=== PATIENT | male | born 2000 | race Caucasian/White ===

== ENCOUNTER 2019-06-25 13:47 | Emergency (ER) | payer OTHER ==
[~2019-06-25] VITALS: Ht 170.2 cm; Wt 72.8 kg
[~2019-06-25 13:47] MED LIST: ACET325T45 PO; ACET500C5 PO; D-ME118S6 PO; IBUP-1541 PO; ONDA4TAB14 PO
[2019-06-25 14:01] VITALS: Ht 170.2 cm; Wt 72.8 kg
[2019-06-25] MEDS ORDERED: ONDANSETRON (ODT) 4 MG TAB ODT STA (15:10)
--- NOTE | 2019-06-25 15:21 | ERD ---
ER Documentation Chief Complaint Chief Complaint c/o headache dizziness s/p headbut with another during soccer game HPI 18-year-old male presented to ED for a headache x1 day. Patient states he was in a soccer game last night and collided heads with another player. Patient did not lose consciousness patient member the entire event. Patient not currently taking any blood thinners he is not any other medications patient states the pain is about a 7 out of 10. Patient states the pains on the right side and extends from the temporal lobe to the occipital lobe. Patient denies any blurry vision and he is alert and oriented x4. Patient states he has no allergies to medications. ROS All systems reviewed and are negative except as per history of present illness. Medications Home Meds Active Scripts Ondansetron (Ondansetron Odt) 4 Mg Tab.rapdis, 4 MG PO Q6H PRN for NAUSEA AND/OR VOMITING, #10 TAB Prov:LAURI HUSSEIN PA-C 06/25/19 Acetaminophen* (Tylophen*) 500 Mg Capsule, 2 CAP PO Q8H PRN for PAIN AND OR ELEVATED TEMP, #20 CAP Prov:LAURI HUSSEIN PA-C 06/25/19 Acetaminophen* (Acetaminophen*) 325 Mg Tablet, 325 MG PO Q4H PRN for PAIN AND OR ELEVATED TEMP, #30 TAB Prov:ALE EUCEDA 09/17/15 Ibuprofen* (Ibuprofen*) 400 Mg Tablet, 400 MG PO Q6H PRN for PAIN, #15 TAB Prov:ALE EUCEDA 09/17/15 Dextromethorphan Hb-Promethazine Hcl (Promethazine DM Syrup) 180 Ml Syrup, 5 ML PO Q6 PRN for COUGH, #4 OZ Prov:ALE EUCEDA 09/17/15 Allergies Allergies: Coded Allergies: No Known Allergy (Unverified , 06/25/19) PMhx/Soc History of Surgery: No Anesthesia Reaction: No Hx Neurological Disorder: No Hx Respiratory Disorders: Yes (BRONCHITIS ) Hx Cardiac Disorders: No Hx Psychiatric Problems: No Hx Miscellaneous Medical Probl: No Hx Alcohol Use: No Hx Substance Use: No Hx Tobacco Use: No Smoking Status: Never smoker FmHx Family History: No diabetes, No coronary disease, No other Physical Exam Vitals Vital Signs Date Temp Pulse Resp B/P (MAP) Pulse Ox O2 O2 Flow FiO2 Time Delivery Rate 06/25/19 97.9 73 16 144/68 99 14:01 (93) Physical Exam GENERAL: The patient is well-appearing, well-nourished, in no acute distress HEENT: Atraumatic. Conjunctivae are pink. Pupils equal, round, and reactive to light. There is no scleral icterus. Tympanic membranes clear bilaterally. Oropharynx clear. No nystagmus or photophobia. NECK: C-spine is soft and supple. There is no meningismus. There is no cervical lymphadenopathy. CHEST: Clear to auscultation bilaterally. There are no rales, wheezes or rhonchi. HEART: Regular rate and rhythm. No murmurs, clicks, rubs or gallops. EXTREMITIES: Equal pulses bilaterally. There is no peripheral clubbing, cyanosis or edema. No focal swelling or erythema. Full range of motion. Grossly neurovascularly intact. NEUROLOGIC: Alert and oriented. Cranial nerves II through VII intact. Motor strength in all 4 extremities with 5 out of 5 strength. Sensation grossly intact. Normal speech and gait. Results 24 hrs Current Medications Medications Dose Sig/Kemi Start Time Status Last (Trade) Ordered Route PRN Stop Time Admin Dose Reason Admin 1 tab ONCE ONCE 06/25/19 Acetaminophen PO 15:30 / 06/25/19 15:31 Hydrocodone Bitart (Randolph (10/325)) Ondansetron 4 mg ONCE STAT 06/25/19 DC HCl (Zofran ODT 15:10 Odt) 06/25/19 15:11 Procedures/MDM ED course: The patient was stable throughout the ED course. The patient and/or family informed of laboratory and diagnostic imaging results throughout the ED course. Medications given in ER: Randolph Zofran Patient tolerated medication well with no adverse reactions. Patient reported improvement in pain. Medical decision makin-year-old male presented to ED secondary to head injury that occurred in a soccer game. Patient collided heads with another player. Patient did not lose consciousness. Patient is alert oriented x4. Physical exam was unremarkable there was no signs of bruising behind the ears patient has no tenderness palpation to the mastoid process. The patient has no crepitus or pain to p alpation facial maxillary bones. Patient has no drainage from his ears and tympanic membranes are intact bilateral. Patient states that lights tend to aggravate his headache. Patient was given Randolph and Zofran in the ED and upon reevaluation the patient appears to be doing much better. The patient's mother is present and she will be driving the patient home. Patient has suffered from minor blunt head trauma that occurred on the following data and time: June 24 7 Pm. The patient has a GCS of [address] was not performed based on the 2008 [employer] Clinical Policy on Adult Head Trauma.Working impression: Minor blunt head trauma. Advised patient to take it easy the next couple days. I advised him that if he experiences any nausea vomiting worsening head pain confusion or any other worsening symptoms return to ED immediately. Advised the patient cannot go back to playing sports until he is cleared by his primary care doctor. Advised the patient to follow-up with a primary care doctor in the next 1 to 2 days. Patient is agreement to the treatment plan all questions were answered upon discharge. Prescription for home: Zofran Acetaminophen I have discussed with the patient proper use and common side effects to expert with the medication . I advised the patient/family to speak with the pharmacist dispensing the medication to be advised of any potential drug interactions with other medication or supplements they may be taking. Discharge: At this time, patient is stable for discharge and outpatient management. I have instructed the patient to follow-up with his\her primary care physician in 1 to 2 days. I have discussed with the patient the possibility of needing to see a specialist for further work-up and imaging studies if symptoms persist. I have instructed the patient to promptly return to the ER for any new or worsening symptoms including increased pain, fever, nausea, vomiting, weakness or LOC. The patient and\or family expressed understanding of and agreement with this plan. All questions were answered. Home care instructions were provided. Disclaimer: Inadvertent spelling and grammatical errors are likely due to EHR\dictation software use and do not reflect on the overall quality of patient care. Also, please note that the electronic time recorded on the note does not necessarily reflect the actual time of the patient encounter. Departure Diagnosis: Primary Impression: Post-concussion headache Condition: Stable Patient Instructions: Concussion, Child & Adolescent Referrals: COMMUNITY CLINICS YOU HAVE RECEIVED A MEDICAL SCREENING EXAM AND THE RESULTS INDICATE THAT YOU DO NOT HAVE A CONDITION THAT REQUIRES URGENT TREATMENT IN THE EMERGENCY DEPARTMENT. FURTHER EVALUATION AND TREATMENT OF YOUR CONDITION CAN WAIT UNTIL YOU ARE SEEN IN YOUR DOCTORS OFFICE WITHIN THE NEXT 1-2 DAYS. IT IS YOUR RESPONSIBILITY TO MAKE AN APPOINTMENT FOR FOLOW-UP CARE. IF YOU HAVE A PRIMARY DOCTOR --you should call your primary doctor and schedule an appointment IF YOU DO NOT HAVE A PRIMARY DOCTOR YOU CAN CALL OUR PHYSICIAN REFERRAL HOTLINE AT IF YOU CAN NOT AFFORD TO SEE A PHYSICIAN YOU CAN CHOSE FROM THE FOLLOWING [facility] [address] [facility] [address] [facility] [address] [facility] [address] [facility] [address] [facility] [facility] [address] [facility]. [facility] YOU HAVE RECEIVED A MEDICAL SCREENING EXAM AND THE RESULTS INDICATE THAT YOU DO NOT HAVE A CONDITION THAT REQUIRES URGENT TREATMENT IN THE EMERGENCY DEPARTMENT. FURTHER EVALUATION AND TREATMENT OF YOUR CONDITION CAN WAIT UNTIL YOU ARE SEEN IN YOUR DOCTORS OFFICE WITHIN THE NEXT 1-2 DAYS. IT IS YOUR RESPONSIBILITY TO MAKE AN APPOINTMENT FOR FOLOW-UP CARE. IF YOU HAVE A PRIMARY DOCTOR --you should call your primary doctor and schedule and appointment IF YOU DO NOT HAVE A PRIMARY DOCTOR YOU CAN CALL OUR PHYSICIAN REFERRAL HOTLINE AT . IF YOU CAN NOT AFFORD TO SEE A PHYSICIAN YOU CAN CHOSE FROM THE FOLLOWING [facility]: [facility] [address] [place] [address] [facility] [address] [place] [address] [facility] [address] [place] [address] Additional Instructions: Call your primary care doctor TOMORROW for an appointment during the next 1-2 days.See the doctor sooner or return here if your condition worsens before your appointment time. LAURI HUSSEIN PA-C Jun 25, 2019 15:21
[2019-06-25] MEDS ORDERED: HYDROCODONE/APAP (10/325) TAB PO ONE (15:30)
[2019-06-25 15:52] VITALS: BP 128/67; PULSE 78; RESP 16
== END 2019-06-25 16:03 | disposition home or self-care (01) ==
LOC: FTE 13:47
DX: G44.309 Post-traumatic headache, unspecified, not intractable (principal)
CPT/HCPCS: Z7502; Z7610; 99283